=== PATIENT | male | born 1945 | race Caucasian/White ===

== ENCOUNTER → 2023-09-20 09:35 | Outpatient (BNVA) | payer MEDICARE, SELFPAY | PROVIDERS: PCP Nurse Practitioner Family; Referring Provider Nurse Practitioner Family; Visit Provider Dermatology | DX: D48.5 Neoplasm of uncertain behavior of skin (principal); L57.0 Actinic keratosis; D22.39 Melanocytic nevi of other parts of face; L57.8 Other skin changes due to chronic exposure to nonionizing radiation; L82.1 Other seborrheic keratosis; Z85.828 Personal history of other malignant neoplasm of skin | CPT/HCPCS: 11102; 17000; 99203 ==

== ENCOUNTER → 2024-01-01 10:00 | Outpatient (BNVA) | payer MEDICARE, SELFPAY | PROVIDERS: PCP Nurse Practitioner Family; Visit Provider Nurse Practitioner Family | DX: L57.0 Actinic keratosis (principal); L82.1 Other seborrheic keratosis; D22.39 Melanocytic nevi of other parts of face; D69.2 Other nonthrombocytopenic purpura; L57.8 Other skin changes due to chronic exposure to nonionizing radiation; Z85.828 Personal history of other malignant neoplasm of skin | CPT/HCPCS: 17000; 99213 ==

== ENCOUNTER → 2024-04-02 07:54 | Outpatient (BNVA) | payer MEDICARE, SELFPAY | PROVIDERS: PCP Nurse Practitioner Family; Visit Provider Nurse Practitioner Family | DX: L57.0 Actinic keratosis (principal); S50.911A Unspecified superficial injury of right forearm, initial encounter; X58.XXXA Exposure to other specified factors, initial encounter; L82.1 Other seborrheic keratosis; D22.39 Melanocytic nevi of other parts of face; D69.2 Other nonthrombocytopenic purpura; L57.8 Other skin changes due to chronic exposure to nonionizing radiation; Z85.828 Personal history of other malignant neoplasm of skin | CPT/HCPCS: 17000; 99213 ==

== ENCOUNTER → 2025-06-26 10:29 | Outpatient (BNVA) | payer MEDICARE, MEDICAID, SELFPAY | PROVIDERS: PCP Nurse Practitioner Family; Visit Provider Orthopaedic Surgery | DX: M25.561 Pain in right knee (principal); M25.562 Pain in left knee; M17.12 Unilateral primary osteoarthritis, left knee | CPT/HCPCS: 73560; 73565; 99204 ==

== ENCOUNTER 2025-07-02 06:21 | Outpatient (CLI) | payer MEDICARE, MEDICAID, SELFPAY ==
--- NOTE | 2025-07-02 06:35 | USCV_ITS ---
Orion Kaplan Age: 79 Gender: M : 1945 Exam Date: 07/02/2025 06:48 Ordering Phys: Claribel Gonzalez Technologist: Exam Location: [facility] – [place] Indication: palp BP: 147 / 79 HR: 50 Rhythm: Sinus Technical Quality: Adequate MEASUREMENTS (Male / Female) Normal Values 2D ECHO LV Diastolic Diameter PLAX 4.6 cm 4.2 - 5.9 / 3.9 - 5.3 cm IVS Diastolic Thickness 1.3 cm 0.6 - 1.0 / 0.6 - 0.9 cm IVS Systolic Thickness 1.9 cm LVPW Diastolic Thickness 1.3 cm 0.6 - 1.0 / 0.6 - 0.9 cm LVPW Systolic Thickness 2.1 cm LVOT Diameter 2.0 cm LV Ejection Fraction 2D Teich 66.8 % LV Ejection Fraction MOD 4C 67.8 % LV Ejection Fraction MOD 2C 62.7 % LV Ejection Fraction 2C AL 64.6 % LA Diameter 4.0 cm RA Systolic Volume 4C AL 35.4 ml RA Systolic Volume 4C MOD 34.2 ml Aorta at Sinotubular Diameter 4.0 cm IVC Diameter 2.1 cm M-MODE LA Ao Ratio MM 1.3 AV Cusp Separation MM 2.2 cm DOPPLER AV Peak Velocity 139.0 cm/s LVOT Peak Velocity 82.0 cm/s AV Area Cont Eq vti 1.9 cm squared AV Area Cont Eq pk 1.9 cm squared MV Peak Velocity 87.0 cm/s MV Area PHT 2.2 cm squared Mitral E to A Ratio 0.9 TV Peak Velocity 151.0 cm/s TR Peak Velocity 157.0 cm/s TR Peak Gradient 9.9 mmHg TV Peak E Velocity 97.0 cm/s PV Peak Velocity 104.0 cm/s FINDINGS Left Ventricle Normal left ventricular size and systolic function, EF 60-65%. No regional wall motion abnormalities. Mild left ventricular hypertrophy. Right Ventricle Normal in size and function Right Atrium Normal in size Left Atrium Dilated IA Septum Grossly normal Mitral Valve Structurally normal valve. Mild mitral regurgitation. Aortic Valve Structurally normal aortic valve. No significant stenosis. Tricuspid Valve Insufficient TR jet to evaluate RVSP. 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
[2025-07-02 07:28] LABS: Hematocrit 43.9 % (37-53); Hemoglobin 14.40 g/dL (11.27-16.99); Mean Corpuscular HGB Conc 32.8 g/dL (30-55); Mean Corpuscular Hemoglobin 29.1 pg (27-33); Mean Corpuscular Volume 88.9 fl (82-101); Nucleated Red Blood Cells % 0 %; Platelet Count 111 10^3/cmm (157-399); Red Blood Count 4.94 10^6/uL (3.85-5.65); White Blood Count 6.28 10^3/uL (3.29-11.43)
[2025-07-02 07:43] LABS: Glucose Urine UA Negative (Normal); Nitrate Urine Negative (Negative); Specific Gravity, Urine 1.017 (1.005-1.030)
[2025-07-02 07:46] LABS: Add Urine Microscopic? YES
[2025-07-02 07:48] LABS: Alanine Aminotransferase 9 U/L (0-41); Albumin Level 4.0 g/dL (3.5-5.2); Alkaline Phosphatase 93 U/L (40-130); Anion Gap 16.0 (5-19); Aspartate Amino Transferase 14 U/L (0-40); Blood Urea Nitrogen 19 mg/dL (8-23); Calcium 8.8 mg/dL (8.5-10.5); Carbon Dioxide 23 mmol/L (22-29); Chloride 104 mmol/L (98-107); Globulin 2.9 g/dL (1.3-4.6); Glucose 187 mg/dL (65-115); Osmolality Calculated 295 mOsm/kg (285-295); Potassium 4.0 mmol/L (3.5-5.1); Sodium 139 mmol/L (136-145); Total Protein 6.9 g/dL (6.6-8.7)
[2025-07-02 08:24] LABS: Estmated Average Glucose 177; Hemoglobin A1C 7.8 % (4.0-6.0)
== END 2025-07-02 06:22 | disposition home or self-care (01) ==
PROVIDERS: Orthopaedic Surgery; PCP Nurse Practitioner Family; Visit Provider Nurse Practitioner Family
DX: Z01.818 Encounter for other preprocedural examination (principal); R73.09 Other abnormal glucose; R00.2 Palpitations; R06.00 Dyspnea, unspecified; I51.89 Other ill-defined heart diseases; I51.7 Cardiomegaly; I34.0 Nonrheumatic mitral (valve) insufficiency; I37.1 Nonrheumatic pulmonary valve insufficiency; I35.8 Other nonrheumatic aortic valve disorders
CPT/HCPCS: 36415; 80053; 81001; 83036; 85025; 93306

== ENCOUNTER → 2025-07-08 09:22 | Outpatient (BNVA) | payer MEDICARE, MEDICAID, SELFPAY | PROVIDERS: PCP Nurse Practitioner Family; Visit Provider Podiatrist Foot & Ankle Surgery | DX: E11.8 Type 2 diabetes mellitus with unspecified complications (principal); L60.3 Nail dystrophy; G62.9 Polyneuropathy, unspecified; E11.42 Type 2 diabetes mellitus with diabetic polyneuropathy; Z79.4 Long term (current) use of insulin | CPT/HCPCS: 11721; 99203 ==